=== PATIENT | female | born 1960 | race Caucasian/White ===

== ENCOUNTER 2021-04-13 21:52 | Emergency (ER) | payer OTHER ==
[~2021-04-13] VITALS: Ht 152.4 cm; Wt 43.0 kg
--- NOTE | ~2021-04-13 | EMS ---
[facility] [address] [place] [address] EMS Patient Care Report Name: CYNTHIA MORLEY Room #: DEP Vic#: [id number] Admission: 04/13/21 Attend Phys: Discharge: 04/14/21 Date of : 60 Report #: [id number] THIS REPORT FOR: //name// Report Transmitted: 04/16/2021 13:38 EMS Care Summary [place], [place]/[facility] Incident [id number] @ 04/13/2021 20:59 Incident Location [facility] Patient CYNTHIA MORLEY Female, 61 Years 1960 Patient Address [address] [place] [address] Patient History Behavioral/Psychiatric Disorder, Chief Complaint BEHAVIORAL/SI PT - HAS NO COMPLAINT Disposition Transported No Lights/[place] Dispatch Reason Psychiatric Problem/Abnormal Behavior/Suicide Attempt Transported To [facility] Narrative M39 was dispatched to listed address for a transfer from [facility] to [facility]. Pt being transferred today for behavioral issues. Suicidal ideations and confusion. Pt has no complaints and is very pleasant and in good spirits. Pt was loaded onto cot and into ambulance. During transport pt rested comfortably and secured to cot with no problems. Pt care and report given to receiving hospital with no problems. Initial Vitals [facility] [address] [place] [address] EMS Patient Care Report Name: CYNTHIA MORLEY Room #: DEP [facility] [id number] Admission: 04/13/21 Attend Phys: Discharge: 04/14/21 Date of : 60 Report #: [id number] @21:28P: 96,R: 18,BP: 167/62,Pain: 0/10,GCS: 14,SpO2: 100,Revised Trauma: 12, @21:47P: 86,R: 16,BP: 151/81,Pain: 0/10,GCS: 14,SpO2: 99,Revised Trauma: 12, Assessments @21:20MENTAL:Confused,Place Oriented,Event Oriented,Time Oriented,Person Oriented,SKIN:HEENT:Head/Face: No Abnormalities,Neck/Airway: No Abnormalities,LUNG SOUNDS:General: No Abnormalities,ABDOMEN:General: No Abnormalities,PELVIS//GI:No Abnormalities,EXTREMITIES:Left Arm: No Abnormalities,Right Arm: No Abnormalities,Left Leg: No Abnormalities,Right Leg: No Abnormalities,PULSE:Radial: 2+ Normal,NEURO: Impression Behavioral/psychiatric episode Procedures @21:20 ALS Assessment Response: UnchangedSucceeded Timeline 15:48,Call Received 15:48,Dispatch Notified 20:59,Dispatched 20:59,En Route 21:17,On Scene 21:18,At Patient 21:20,ALS Assessment,Response: UnchangedSucceeded, 21:27,Depart Scene 21:28,BP: 167/62 M,PULSE: 96,RR: 18 R,SPO2: 100 Ox,ETCO2: ,BG: ,PAIN: 0,GCS: 14, 21:47,BP: 151/81 M,PULSE: 86,RR: 16 R,SPO2: 99 Ox,ETCO2: ,BG: ,PAIN: 0,GCS: 14, 21:57,At Destination 22:01,Call Closed Disclaimer v1.1 Copyright 2021 [employer] This EMS Care Summary contains data elements from the applicable legal record (which may be displayed differently). It is designed to provide pertinent information for the following purposes: continuity of care, clinical quality, and state data reporting. The complete legal record is available to ED staff and administrators of the receiving hospital in [employer]'s Patient Tracker. All data is provided "as is."
[2021-04-13 22:23] VITALS: BP 154/95
[2021-04-14] MEDS ORDERED: LISINOPRIL20 MG PO (12:50)
== END 2021-04-14 10:00 ==
LOC: ER 21:52
PROVIDERS: Student in an Organized Health Care Education/Training Program
DX: F03.91 Unspecified dementia, unspecified severity, with behavioral disturbance (principal); Z20.822 Contact with and (suspected) exposure to COVID-19

== ENCOUNTER 2021-04-14 03:47 | Inpatient (IN) | payer OTHER ==
[~2021-04-14] VITALS: Ht 154.9 cm; Wt 36.3 kg
[2021-04-14 10:33] VITALS: BP 128/107
[2021-04-14 11:59] VITALS: BP 139/94
--- NOTE | 2021-04-14 12:41 | NUR ---
61 yo female admitted via ER with unspecified psychosis. Alert and orientated to name only. Slightly agitated but calms down when left alone. At times uncooperative with cares. States she wants to go home. Reportedly verbally abusive toward stating she wants to kill him. Denies SI/HI. Per no previous mental health hx. Breath sounds clear. Reg HR, low 100s auscultated. Color pink with brisk capillary refill and palpable peripheral pulses. No edema noted. Incontinent of large amt yellow urine. Active bowel sounds over soft, flat abdomen. Per report has recent 40# wt loss. Ambulates with regular, steady gait. Consents obtained via phone from Liam CAMACHO.
[2021-04-14] MEDS ORDERED: LISINOPRIL20 MG PO (12:50)
[2021-04-14 13:01] LABS: CHOLESTEROL 219 mg/dL (<200); HDL CHOLESTEROL 105 mg/dL (>40); LDL CHOLESTEROL 103 mg/dL (<100); TC:HDL 2.1 Ratio (Not establshd); TRIGLYCERIDE 59 mg/dL (<150); VLDL 12 mg/dL (<40)
--- NOTE | 2021-04-15 04:09 | NUR ---
Assumed pt's care this pm shift. Oriented to self. Confused. Difficult to redirect. Pt wandering the hallway and entering into other people's rooms. Pt refused PO med zyprexa, therefore IM zyprexa given. Pt got into verbal disagreement with a peer, because the peer was raising his voice to get attention. Pt now in her room, sleeping. Nursing to continue to monitor.
[2021-04-15 05:36] LABS: GLYCOHEMOGLOBIN (HGB A1C) 5.2 % (4.8-5.6)
[2021-04-15 08:59] VITALS: BP 111/75
--- NOTE | 2021-04-15 10:56 | NUR ---
RESTLESS IN DAYROOM THIS AM. ANXIOUS DISTRAUGHT FACIAL EXPRESSION-ASKING REPEATDLY FOR BEBE WHO IS REPORTED TO BE HER DOG. ORIENTED TO NAME ONLY-REMINDED SEVERAL TIMES SHE IS IN THE HOSPITAL BUT APPEARS UNABLE TO RETAIN INFO PROVIDED WITHIN 1-2 MINUTES WILL ASK AGAIN WHERE SHE IS AT. TEARFUL-STATING SHE IS "LOST" UNABLE TO BE REASSURED DESPITE MULTIPLE ATTEMPTS FROM NURSING STAFF. GAIT UNSTEADY WALKS INSISENTLY UNTIL BECOMES OVERLY FATIGUED-UNABLE TO BE REDIRECTED.
--- NOTE | 2021-04-15 11:15 | NUR ---
04-15-2021-1030--Call to signiicant other of patient, Liam Leal--( ) to get further information (SS # and income source). Not in message left to return my call
[2021-04-15 19:30] VITALS: BP 102/70
[2021-04-15 19:40] VITALS: BP 92/71
[2021-04-15 20:23] VITALS: BP 92/71
--- NOTE | 2021-04-15 22:52 | H ---
[facility] [place] [address] HISTORY AND PHYSICAL Name: CYNTHIA MORLEY Room #: 525A-A ADM IN M.R.#: [id number] Admission: 04/14/21 Attend Phys: Pranay Fregoso DO Discharge: Date of : 60 Report #: [id number] THIS REPORT FOR: cc: FAM - No family physician/PCP FAM - No family physician/PCP Pranay Fregoso DO ~ DATE OF SERVICE: 04/14/2021 INPATIENT PSYCHIATRIC EVALUATION [facility]13[facility]21. SOURCES OF INFORMATION: [facility] from [facility], telephone conversation with her DPOA, Liam Leal, [phone]. CHIEF COMPLAINT: "I am in my home." HISTORY OF PRESENT ILLNESS: This is a 61-year-old female who co-habitates with her boyfriend of 15 years, Liam Leal. The patient presented to the [facility] ED on 04/12 with complaints of aggression. She was brought by the [place] [employer]. She was also confused. The patient has according to the [facility] notes had a progressive dementia for 8-10 years. From discussion with the boyfriend, it was clear in the last 3 years she has been demented. The reports that she was supposed to have a spinal tap at [facility] on 04/12/2021, that appears not to be true. That was recommended due to neurological consultation. Moving on, The patient had become combative, so her boyfriend called an ambulance. She had escalation over the last couple of months, especially in the last 2 weeks. Her boyfriend has quit his job to be her full-time caregiver. He states he is there 98% of the time. She is having behaviors such as up at night pacing. At times, it seems she may be talking with herself or in the mirror. There was not a CIT report initially, but there are affidavits done, I will review. The patient at [facility] was mildly disheveled in a hospital gown, [facility]. She was oriented to self only. She had word salad and nonsensical speech. Thought process was disorganized. Thought content was delusional. The patient's mood was dysphoric. She was interacting with internal stimuli. She was tearful, upset about her dog that she has imagined was next to her. She was assessed by a HP at [facility]. Her medical history included a treatment of COPD, memory loss, mixed hyperlipidemia, pulmonary hypertension. The patient reported that she has [address] [address] HISTORY AND PHYSICAL Name: MORLEYCYNTHIA VILLARREALNE Room #: 525A-A ADM IN .R.#: [id number] Admission: 04/14/21 Attend Phys: Pranay Fregoso DO Discharge: Date of : 60 Report #: [id number] many things to do at home. The patient denies any suicidal ideation or homicidal ideation. The patient's partner reports about 3 years ago, she lost her ADLs skills. She is frequently incontinent of bowel and bladder. LABORATORY DATA: From [facility], sodium 140, potassium 4.0, chloride 103, bicarb 27, anion gap 10, glucose 81, BUN 16, creatinine 0.77, GFR ujc-Pgrnmwy-Fsllexai 83, calcium 9.0, calculated osmolality 290. White blood cell count 7.40, H and H 15.2 and 45.9, platelet count 340. Urinalysis, looks like it was done but I cannot see the results. Acetaminophen negative. Serum alcohol was 11. Salicylate less than 0.3. UDS was positive for cannabinoids. Additional documentation from the emergency medicine physician, Dr. Covarrubias at [facility], the patient denied fevers or chills or chest pain or shortness of breath or cough. She reports that she has many things to do at home. Trying to see if we had a formal review of systems. The patient was too disorganized for me to do one with her. Additional information from conversation with Rylee and our child protective services social worker, her primary care physician at [facility] was Dr. Wharton. The patient had an MRI in late 2019. The patient had a couple neurologic consults, told she was losing white and rosales matter. I suspect with a spinal tap, they will be looking for prion disease or something of that nature. She had a UTI in the summer, which caused her to be quite unreasonable. It sounds like she had a brief medical hospitalization for that. We discussed the patient will need to become Medicaid pending. The DPOA, Liam, gave his own detail of problems he has getting IRS 2056 form done. He finally got it filled at a few months ago but has not heard back. He states the patient has not worked in 11 years. There has been involvement with [facility] and the CIT officer, Carl garcia. FAMILY HISTORY: In terms of the family history, there was a cousin on the father's side that was autistic, looks like her grandmother had dementia. She has 3 siblings total, 2 sisters and 1 brother. SOCIAL HISTORY: She was born in [place], [place], raised in [place], [place]. High school graduate. times twice. She did not have an kids. She has not smoked in 15-20 years. Looks like remote history of alcohol abuse and stated she quit smoking 20-30 years ago. She is occasionally done THC in the last 5 years, so UDS was positive for that. The DPOA recommended liquid pills, I was considering liquid Haldol, but she is presenting fairly akathisic. She had her sister as her paid caregiver until August of this year and the sister [facility] [address] [place] [address] HISTORY AND PHYSICAL Name: CYNTHIA MORLEY Room #: 525A-A ADM IN [facility].#: [id number] Admission: 04/14/21 Attend Phys: Pranay Fregoso, DO Discharge: Date of : 60 Report #: [id number] was not able to keep doing it. We gave him her privacy code number, that is Liam. Additional information, vital signs today, temperature 36.3, pulse 98, BP 139/94. CURRENT MEDICATIONS: Here at [facility], she was strictly on lisinopril 20 mg daily at home, I only increased it to lisinopril 40 mg daily. Started on olanzapine 2.5 mg twice a day with IM backup if she refuses. I gave her a one-time dose of lorazepam for the apparent acute akathisia. She is on Zofran, BenGay, magnesium hydroxide, Cepacol, aluminum hydroxide, magnesium hydroxide and Tylenol to round out her PRNs. Laboratory work done here at [facility] so far strictly, triglycerides 59, total cholesterol 219, LDL 103, HDL 105. COVID-19 serology was not detected. REVIEW OF SYSTEMS: Also Dr. Scherer was able to do review of systems, they were as follows: CONSTITUTIONAL: Denies fever, chills, diaphoresis, malaise. HEENT: Denies congestion, headache, dizziness, difficulty swallowing. RESPIRATORY: Denies cough, dyspnea on exertion, orthopnea, shortness of breath. CARDIOVASCULAR: Denies chest pain, edema, palpitations. GASTROINTESTINAL: Denies abdominal pain, constipation, diarrhea, nausea. MUSCULOSKELETAL: Denies back pain, muscle pain, joint pain, joint swelling. SKIN: Denies rash, bruising, abrasion. NEUROPSYCHIATRIC: Denies numbness, tingling, focal weakness, dizziness. ENDOCRINE: Denies flushing, intolerance to cold, intolerance to heat, increased hunger. HEMATOLOGY/ONCOLOGY: Denies easy bleeding, easy bruising, anemia, blood clots. PSYCHIATRIC: She is denying concerns. PHYSICAL EXAMINATION: GENERAL: She is thin, frail, malnourished appearing female, appearing stated age. MENTAL STATUS EXAMINATION: Well-developed, frail, ill-appearing female. Attention quite limited. Concentration quite limited. Speech normal in rate. Thought process linear for very basic things and becoming disorganized, tangential. She denied suicidal or homicidal ideation. Denied auditory, visual or tactile hallucinations. Memory not formally tested, but known to be grossly impaired. Insight impaired. Judgment impaired. Fund of knowledge well below average. On special note, the patient is incapacitated due to her grave degree of cognitive impairment. Therefore, her durable power of energy attorney for healthcare and durable power of energy attorney for general financial matters is now enacted. I [facility] [address] [place] [address] HISTORY AND PHYSICAL Name: CYNTHIA MORLEY Room #: 525A-A [facility] IN M.R.#: [id number] Admission: 04/14/21 Attend Phys: Pranay JayMaria Esther Fregoso, DO Discharge: Date of : 60 Report #: [id number] made a point of telling this to Liam Mel, her significant other and DPOA. FORMULATION: A 61-year-old female transferred from [facility] for aggressive behaviors, deteriorating cognition hallucinations. 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 The patient's medical needs will be done by Dr. Scherer. She has hypertension, low BMI of 15.6, so she has at least moderate protein calorie malnutrition. PLAN: Will be admission by DPOA in the Geriatric Psychiatry Unit. Evaluate, stabilize, obtain collateral. The patient has had a fair amount of workup done at [facility] in [place]. I will do records request. I did note as well she has a remote history of asthma with admission requiring intubation for respiratory failure about 10 years ago according to Mel. Hospitalist is consulted. Obtain records from [facility]. Regarding her current psychosis and impulsive behaviors, we will start her on olanzapine 2.5 mg twice a day with IM backup. We will give her a one-time 0.5 mg lorazepam dose now. We will see how she responds later today. Given the patient's Medicaid pending, is a top priority and I did discuss that with the DPOA. STRENGTHS: She has a DPOA. WEAKNESSES: She is uninsured, needs a long-term care placement. She is currently full code, but I am going to move her to NO CODE STATUS as her gravely impaired cognition with the hindrance to any successful code blue resuscitation. Time spent on this case is at least 60 minutes, greater than 50% of time was spent on review of records and coordination of care. <ELECTRONICALLY SIGNED> By: Pranay Fregoso, 04/15/21 [id number] Pranay Fregsoo, /nt
--- NOTE | 2021-04-16 04:27 | NUR ---
PATIENT CARE WAS RESUMED AT 1900. SHE WAS SITTING IN THE DININIG AREA AT THE TABLE. SHE IS SLEEPY AND ABLE TO VERBALIZED SOME NEEDS. LUNGS ARE CLEAR. BS ACTIVE X 4 QUADS. SHE TOOK HER MEDS WHOLE AND A MODERATE ASSIST WITH TRANSFER. SHE IS CONTINET OF BOWEL AND BLADDER.FALL PRECATION IN PLACE YELLOW SOCKS AND TOP ON. DENIES SI/AVH/HI. BED IS LOW, LOCKED AND ALARMED
[2021-04-16 08:59] VITALS: BP 117/90
--- NOTE | 2021-04-16 10:41 | NUR ---
SITTIG IN DAYROOM MAJORITY OF SHIFT. SPEECH SOFT,DIFFICULT TO UNDERSTAND. ORIENTED TO NAME ONLY. CONVERSDATION FRAGMENTED-INCOHERENT. GIT UNSTEADY
--- NOTE | 2021-04-16 15:26 | NUR ---
04-16-2021--1400--Family meeting this dater with the significant other of patient, Mr. Leal ([phone]) and he requested I send a referral packet to [facility]. I called the [facility] and obtained their fax number. Admissions called me back wanting to know what her paying source was. I told them she is Medicaid pending. She stated they would get back with me.
[2021-04-16 19:40] VITALS: BP 108/69
[2021-04-16 20:34] VITALS: BP 108/69
--- NOTE | 2021-04-17 04:53 | NUR ---
PATIENT CARE WAS RESUMED AT 1900. SHE WAS SITTING IN THE DININIG AREA ON A RAE CHAIR IN A RIGHT LATERAL POSITION ON HER COMFORT. SHE DENIES ANY PAINS AND NEEDS ASSIST WITH TRANSFER. SHE TOOK HET MEDS WHOLE. DENIES SI/AVH/HI. LUNGS ARE CLEAR BS ACTIVE X4 QUADS. PATINET IS CONTINNET AT THIS TIME. YELLOW TOP AND SOCKS ON WITH BEDLOW, LOCKED AND ALARMED. Q12 MINUTES CHECKS ON GOING.
[2021-04-17 09:41] VITALS: BP 101/61
--- NOTE | 2021-04-17 11:33 | NUR ---
Alert and orientated to name only. Calm, cooperative and compliant. Sleepy at times. Denies SI/HI, no speech/behavior suggestive of SI/HI. Breath sounds clear. Reg HR auscultated. Color pink with brisk capillary refill and palpable peripheral pulses. Continent of yellow urine per toilet. Active bowel sounds over soft, flat abdomen. No documented BM since admission. Will give MOM when available. Sitting in recliner without s/o distress. Able to ambulate with regular, steady gait.
[2021-04-17 19:40] VITALS: BP 118/85
[2021-04-17 21:02] VITALS: BP 83/50
[2021-04-17 21:03] VITALS: BP 116/104
--- NOTE | 2021-04-18 04:07 | NUR ---
PATIENT CARE WAS RESUMED AT 1900. SHE WAS SITTING IN THE DININIG ROOM ON A RAE-CHAIR. SHE IS CONFUSED.DENIES PAINS, SI/AVH/HI. SHE IS INCONTINET OF BLADDER. LUNGS ARE CLEAR BS ACTIVE X4 QUADS. SHE TOOK HER MEDS WHOLE AND IS ABLE TO VERBALISE SOME NEEDS. SHE IS ASSISTED WITH [facility]. BED IS LOCKED , LOW , ALARMED AND PATIENT HAS YELLOW TOP AND SOCKS ON. CONTINUE CARE
[2021-04-18 09:05] VITALS: BP 147/79
--- NOTE | 2021-04-18 10:37 | NUR ---
COVID TEST COMPLETED, SENT TO LAB.
--- NOTE | 2021-04-18 10:38 | NUR ---
04-18-2021--103--Call to Mukul (machine operators). He was not available. When I talked to him last he wanted to know what huyanujant's paying source was. I explained she was Medicaid Pending. (Mr. Leal patient's DPOA stated he had taked to [facility] and filled out the needed paperwork.) I left a message for Mukul to determine if he would accept her. Waiting for call back.
--- NOTE | 2021-04-18 13:22 | NUR ---
PATIENT WAS UP, AND OUT ON THE UNIT, SITTING IN GERICHAIR WHEN CARE ASSUMED. MORNING MEDICATION GIVEN CRUSHED IN PUDDING, WELL TOLERATED. PATIENT IS ALERT TO SELF, FORGETFUL, AND PLEASANTLY CONFUSED. PATIENT REQUIRES ASSIST OF STAFF TO FEED, AND COMPLETE ADL. INCONTINENT CARE PROVIDED BY STAFF. PATIENT IS NOT ABLE TO APPRORIATELY RESPOND TO ASSESSMENT QUESTIONS DUE TO COGNITVE IMPAIRMENT. NO SUICIDAL GESTURE NOTED. INTERMITTENT RESTLESSNESS NOTED, NO AGITATION OR AGGRESSIVE BEHAVIOR NOTED AT THIS TIME, WILL CONTINUE TO REDIRECT, AND MONITOR FOR SAFETY.
--- NOTE | 2021-04-18 14:00 | NUR ---
04-18-2021--1400--Calls made to junior data analyst, Mukul, several times today and left messages. (10:30 AM; 11:30 AM; and 1:45 PM). He wanted to know what kind of aggression she was havkng eyal yaght to us. I called her significant other and he stated the first time she had a UTI. The second time when they brought her here she just wasnn't doing what he wanted him to do. He stated she didn't understand why he was asking her to do things (Ilike get dressed). Mr. Rushing told me to give the admissions person his number and he would talk to him directly. I attempted to call Mukul back but he didn't answer. I left the above information and Mr. Rushing's phone number. I also called Cat (with the [facility]). She wasn't in but I told hber about patient and told her I was faxing the referral to her. I will attempt to call her again tomorrow.
[2021-04-18 19:14] VITALS: BP 110/60
[2021-04-18 19:45] VITALS: BP 110/60
--- NOTE | 2021-04-19 01:26 | NUR ---
PATIENT CARE WAS RESUMED AT 1900. SHE WAS SITTING IN THE DINING AREA AT THE TABLE.SHE IS CONFUSED. TOOK HER MEDS WHOLE.LUNGS ARE CLEAR, SHE DENIES PAINS. BS ACTIVE X4 QUADS.SHE AMBULATES WITH ASSIST X1 . YELLOW TOP AND NON SKID SOCKS ON. Q12 MINUTES CHECKS ON GOING . CONTINUE CARE
[2021-04-19 09:23] VITALS: BP 118/68
[2021-04-19 11:45] VITALS: BP 118/68
[2021-04-19 14:12] LABS: URINE BILIRUBIN NEGATIVE (Negative); URINE BLOOD NEGATIVE (Negative); URINE CLARITY CLEAR; URINE COLOR YELLOW; URINE GLUCOSE-RANDOM* NEGATIVE (Negative); URINE KETONES NEGATIVE (Negative); URINE LEUKOCYTES-REFLEX TRACE (Negative); URINE NITRITE-REFLEX NEGATIVE (Negative); URINE PROTEIN (DIPSTICK) NEGATIVE (Negative); URINE UROBILINOGEN 0.2 E.U./dl (0.2-1.0)
--- NOTE | 2021-04-19 16:13 | NUR ---
PATIENT CARE RESUMMED; PATIENT RESTING IN GERICHAIR IN THE DAYROOM; PATIENT PRESENTS ALERT*1 (SELF); CONFUSED, ALTHOUGH CALM AND COOPERATIVE THROUGHOUT THE DAY; PATIENT DENIES SI/HI/AVH; AUT[employer]S DELIVERY DRIVER VISUALIZED PRESENT DISORGANIZED DELUSIONS; DENIED HAVING ANY CURRENT PAIN; VSS ON ROOMAIR; PATIENT NEEDS ASSISSTANCE WITH MEDICATION ADMINISTRATION DUE TO NOTED TREMORS IN BUE, CAUSING PATIENT TO SPILL MEDICATIONS AND FLUIDS; YES/NO QUESTIONS ARE BEST FOR PATIENT RESPONCES; LUNG SOUNDS CLEAT BILATERALLY, NONLABORED; ABDOMEN SOFT, NONDISTENDED WITH BSP*4; FALL PRECAUTIONS ARE IN PLACE; UA COLLECTED TODAY DUE TO FOUL SMELLING URINE; WILL CONTINUE TO MONITIOR PATIENT;
[2021-04-19 19:20] VITALS: BP 91/62
[2021-04-19 19:50] VITALS: BP 91/62
--- NOTE | 2021-04-20 04:43 | NUR ---
PATIENT ARE WAS RESUMED AT 1900, SHE WAS SITTING AT THE TABLE IN HE DINING AREA. SHE IS AWAKE AND ABLE TO COMMUNICATE SOME NEEDS. LUNGS ARE CLEAR BS ACTIVE X4 QUADS. SHE DENIES PAINS/SI/AVH/HI. SHE TOOK HER MEDS CRUSHED IN A PUDDING. SHE IS INCONTINENT OF BLADDER. YELLOW TOP AND SOCKS ON. BED IS LOW, LOCKED AND ALARMED.Q12 MINUTES CHECKED ONGOING. CONTINUE CARE
--- NOTE | 2021-04-20 08:22 | NUR ---
04-20-2021--814--Call to Cat to check on possiboe admission to one of her facilities. No answer. Message left to call me back. [facility]. Not in. Message left with my number and request to call me back abojt admission.
[2021-04-20 09:11] VITALS: BP 104/64
--- NOTE | 2021-04-20 11:28 | NUR ---
Alert and orientated to name only. Denies SI/HI, no speech/behavior suggestive of SI/HI. Calm, cooperative and compliant. Took meds whole. Breath sounds clear. Reg HR auscultated. Color pink with brisk capillary refill and palpable peripheral pulses. Active bowel sounds over soft, flat abdomen. Continent of yellow urine per toilet. Able to ambulate with steady gait. Currently sitting in recliner without s/o distress.
--- NOTE | 2021-04-20 11:52 | NUR ---
04-20-2021--0994--Emailed Cat to determine oif any of her facilities had accepted or denied patient. Waiting for a return phone call or e-mail. Also attempted to call [facility]. Three voice mails were left for him to return my phone call. No response so far.
[2021-04-20 19:30] VITALS: BP 104/64
--- NOTE | 2021-04-21 01:37 | NUR ---
PATIENT CARE WAS RESUMED AT 1900. SHE WAS T THE DININIG AREA SITTING ON RECLINER. SHE TOOK HER MEDS WHOLE AND ABLE TO VERBALIZE SOME NEEDS. LUNGS ARE CLEAR BS ACTIVE X4 QUAD.SHE TOOK HER MEDS WHOLE AND TALKED TO ANOTHER PATIENT SITTING THERE. SHE IS A MAX ASIST WITH CARE. SHE DENIES PAINS/SI/AVH/HI
[2021-04-21 07:31] VITALS: BP 127/75
--- NOTE | 2021-04-21 09:06 | NUR ---
Alert and orientated to name only. Confused speech with some coherent statements. Ambulates with slightly unsteady gait with assistance. Breath sounds clear. Reg HR auscultated. Color pink with brisk capillary refill and palpable peripheral pulses. Continent of yellow urine per toilet. Active bowel sounds over soft, flat abdomen. Currently sitting in recliner in day room with peers. No s/o distress.
[2021-04-21 13:42] LABS: ABSOLUTE NEUTROPHILS 4.5 thou/uL (1.4-8.2); BASOPHILS 0.3 % (0.0-2.0); EOSINOPHILS 2.5 % (0.0-3.0); HEMOGLOBIN 14.5 gm/dL (12.0-15.0); LYMPHOCYTES 11.1 % (24.0-44.0); MCH 30.3 pg (26.0-34.0); MCV 91.8 fL (80.0-100.0); MONOCYTES 8.4 % (1.0-8.0); PLATELET COUNT 244 thou/uL (150-400); POLYS 77.7 % (36.0-66.0); RBC 4.79 mil/uL (4.20-5.00); RDW 13.3 % (10.5-14.5); WBC 5.7 thou/uL (4.0-11.0)
[2021-04-21 14:01] LABS: ALBUMIN 3.9 g/dL (3.4-5.0); CALCIUM 9.4 mg/dL (8.5-10.1); CREATININE 0.9 mg/dL (0.6-1.0); POTASSIUM 4.7 mmol/L (3.5-5.1); TOTAL BILIRUBIN 0.3 mg/dL (0.2-1.0); TOTAL PROTEIN 7.2 g/dL (6.4-8.2)
[2021-04-21 16:26] VITALS: BP 125/71
[2021-04-21 18:52] LABS: URINE BILIRUBIN NEGATIVE (Negative); URINE BLOOD TRACE (Negative); URINE CLARITY CLEAR; URINE COLOR YELLOW; URINE GLUCOSE-RANDOM* NEGATIVE (Negative); URINE KETONES TRACE (Negative); URINE LEUKOCYTES-REFLEX NEGATIVE (Negative); URINE NITRITE-REFLEX NEGATIVE (Negative); URINE PROTEIN (DIPSTICK) NEGATIVE (Negative); URINE SPECIFIC GRAVITY 1.025 (1.005-1.035); URINE UROBILINOGEN 0.2 E.U./dl (0.2-1.0)
[2021-04-21 19:50] VITALS: BP 125/74
[2021-04-22 00:05] VITALS: BP 118/64
--- NOTE | 2021-04-22 01:10 | NUR ---
04-21-20 CARE TRANSFERRED 1899. LATER PT DROWSY, CALM AND COOPERTIVE. PT AAOX1, VSS, RR EVEN AND NONLABORED ON RA, PT LUNGS CLEAR, HT RR, ABD SOFT/ACTIVE/ NONTENDER. PT DENIES PAIN AND SI/HI. PT VERBAL COMMUNICATION GARBLED WITH WORD SALAD. HCP Sherif ESCAMILLA MD CONSULTED R/T COVID POSITIVE LAB, PT TO TRANSFERR TO 3W.
--- NOTE | 2021-04-23 07:38 | EKG ---
[place] [address] [facility] [place] [address] ELECTROCARDIOGRAM REPORT Name: CYNTHIA MORLEY Room #: 525A-A [facility] IN .R.#: [id number] Admission: 04/14/21 Attend Phys: Pranay Fregoso DO Discharge: 04/22/21 Date of : 60 Report #: [id number] 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
== END 2021-04-22 01:09 | disposition short-term general hospital (02) | DRG 884 ==
LOC: SBH 03:47
PROVIDERS: Internal Medicine; ADMIT Psychiatry & Neurology Psychiatry; ATTEND Psychiatry & Neurology Psychiatry
PROC: XW033E5 Introduction of Remdesivir Anti-infective into Peripheral Vein, Percutaneous Approach, New Technology Group 5 (ICD-10-PCS; principal; 2021-04-22)
DX: F03.91 Unspecified dementia, unspecified severity, with behavioral disturbance (principal); F01.50 Vascular dementia, unspecified severity, without behavioral disturbance, psychotic disturbance, mood disturbance, and anxiety; E43 Unspecified severe protein-calorie malnutrition; U07.1 COVID-19; Z68.1 Body mass index [BMI] 19.9 or less, adult; F29 Unspecified psychosis not due to a substance or known physiological condition; I10 Essential (primary) hypertension; J44.9 Chronic obstructive pulmonary disease, unspecified; J45.909 Unspecified asthma, uncomplicated; Z88.0 Allergy status to penicillin; Z28.21 Immunization not carried out because of patient refusal
CPT/HCPCS: 10880

== ENCOUNTER 2021-04-22 01:10 | Inpatient (IN) | payer OTHER ==
[~2021-04-22] VITALS: Wt 36.0 kg
[~2021-04-22 01:10] MED LIST: LISINOPRIL20 MG PO
[2021-04-22 02:05] VITALS: BP 85/58
--- NOTE | 2021-04-22 03:28 | NUR ---
ADMIT FROM H. PT PRESENTED ON SBH LETHARGIC, POOR INTAKE AND FEVER. TESTED POSITIVE FOR COVID. PT ADMITTED TO [facility] FOR AGITATION, CONFUSION, PACING, HISTORY OF DEMENTIA. LIVES WITH HER BOYFRIEND/DPOA, HE IS HER CONDENSER WINDER ESCROW REPRESENTATIVE. PT HAS HX OF HTN, ASTHMA, DEMENTIA, MARIJUANA USE, ETOH HISTORY, SMOKING HISTORY. PT WOULD NOT FOLLOW VERBAL INSTRUCTIONS, WOULD NOT OPEN EYES, WOULD NOT ANSWER ANY QUESTIONS. PT POSITIONING SELF IN POSITION IN BED, HOLDING ARMS IN TIGHTLY. 4 ATTEMPTS TO START IV, NOT SUCCESSFUL. PER REPORT PT IS ALERT TO SELF AND TALKS IN WORD SALAD. INCONTINENT, NEEDS MAX ASSIST WITH FEEDING, ADLS AND AMBULATION. BED ALARM ON.
[2021-04-22 04:26] LABS: HEMATOCRIT 42.9 % (37.0-47.0); MCH 30.5 pg (26.0-34.0); MCHC 32.5 g/dL (28.0-37.0); MCV 93.8 fL (80.0-100.0); RBC 4.58 mil/uL (4.20-5.00); RDW 13.4 % (10.5-14.5); WBC 3.4 thou/uL (4.0-11.0)
[2021-04-22 04:50] LABS: CALCIUM 9.5 mg/dL (8.5-10.1); CREATININE 0.9 mg/dL (0.6-1.0); POTASSIUM 4.1 mmol/L (3.5-5.1)
[2021-04-22 04:54] LABS: ALBUMIN 3.7 g/dL (3.4-5.0); TOTAL BILIRUBIN 0.4 mg/dL (0.2-1.0); TOTAL PROTEIN 6.8 g/dL (6.4-8.2)
--- NOTE | 2021-04-22 06:25 | NUR ---
WILL HAVE DAYSHIFT CONTINUE IV START ATTEMPTS OR CONTACT IV TEAM.
[2021-04-22 08:07] VITALS: BP 83/48
[2021-04-22 11:20] VITALS: BP 100/65
[2021-04-22 15:48] VITALS: BP 123/66
--- NOTE | 2021-04-22 19:46 | NUR ---
RN ASSUMED PT'S CARE AT 0700-1900PM, PT WAS SLEEPING AT MORNING, PT IS CONFUSED, PT IS AGITAION AT TIME, PT IS ON ROOM AIR, PT'S VS AND O2SAT ARE STABLE, PT IS CONTNUING IV ABX AND TREAT COVID MEDICATIONS, PT HAS BRAMBILA CATHETER AT 1730PM , BECAUSE PT HAS URINARY RETENTION, PT REFUSED TO EAT ANS DRINK AT DINNER TIME.
[2021-04-22 19:48] LABS: URINE BILIRUBIN NEGATIVE (Negative); URINE BLOOD NEGATIVE (Negative); URINE CLARITY CLEAR; URINE COLOR YELLOW; URINE GLUCOSE-RANDOM* NEGATIVE (Negative); URINE KETONES TRACE (Negative); URINE LEUKOCYTES-REFLEX NEGATIVE (Negative); URINE NITRITE-REFLEX NEGATIVE (Negative); URINE PROTEIN (DIPSTICK) NEGATIVE (Negative); URINE SPECIFIC GRAVITY >= 1.030 (1.005-1.035); URINE UROBILINOGEN 0.2 E.U./dl (0.2-1.0)
[2021-04-22 21:07] VITALS: BP 144/118
--- NOTE | 2021-04-22 22:40 | NUR ---
PT ALERT . CONFUSED. FOLLOWS SOME COMMANDS. VSS.AFEBRILE. BED DOWN CALL LIGHTIN REACH IV FLUIDS AND ABX INFUSING WITHOUT DIFFICULTY. NO S/S DISRESS.
[2021-04-23 00:30] VITALS: BP 1120/68
[2021-04-23 04:48] VITALS: BP 100/55
--- NOTE | 2021-04-23 05:29 | NUR ---
PT PROGRESSING SLOWLY TOWARDS D/C GOALS. PT IS CALMER TONIGHT. LESS AGITATED. DENIED PAIN. NO SOA NOTED ON RA. VSS . LOW GRADE TEMP THIS AM. IVF INFUSING L FERMIN WITHOUT DIFFICULTY.
[2021-04-23 06:55] LABS: ABSOLUTE NEUTROPHILS 1.6 thou/uL (1.4-8.2); BASOPHILS 0.5 % (0.0-2.0); EOSINOPHILS 0.4 % (0.0-3.0); HEMOGLOBIN 13.1 gm/dL (12.0-15.0); LYMPHOCYTES 35.6 % (24.0-44.0); MCH 30.3 pg (26.0-34.0); MCHC 32.7 g/dL (28.0-37.0); MCV 92.7 fL (80.0-100.0); PLATELET COUNT 167 thou/uL (150-400); POLYS 49.5 % (36.0-66.0); RBC 4.32 mil/uL (4.20-5.00); WBC 3.2 thou/uL (4.0-11.0)
[2021-04-23 07:13] LABS: ANION GAP 10 mmol/L (7-16); BUN 27 mg/dL (7-18); CALCIUM 8.8 mg/dL (8.5-10.1); CHLORIDE 107 mmol/L (98-107); CO2 23 mmol/L (21-32); DIRECT BILIRUBIN < 0.1 mg/dL (<0.1-0.2); GLUCOSE 86 mg/dL (74-106); MAGNESIUM 1.8 mg/dL (1.8-2.4); PHOSPHORUS 4.4 mg/dL (2.5-4.9); POTASSIUM 4.3 mmol/L (3.5-5.1); SGOT 30 U/L (15-37); SGPT 23 U/L (30-65); SODIUM 140 mmol/L (136-145); TOTAL BILIRUBIN 0.2 mg/dL (0.2-1.0)
[2021-04-23 07:25] LABS: FIBRINOGEN 323 mg/dL (201-437)
[2021-04-23 07:37] LABS: D-DIMER < 0.19 ug/mLFEU (0.19-0.50)
[2021-04-23 07:40] VITALS: BP 107/66
[2021-04-23 11:37] VITALS: BP 101/63
--- NOTE | 2021-04-23 13:42 | NUR ---
INITIAL ASSESSMENT: SW reviewed chart and spoke with nursing and attending physician. Pt was admitted to 3W from [facility] unit due to having positive COVID test. Pt placed in Enhanced Isolation. Pt is afebrile and on room air. Pt is on IV abx and Remdesivir. Pt does not currently have health insurance. [employer] is working with pt/family to assist with Medicaid application. Pt with hx of dementia. Per chart, pt's s/o, Liam, is her DPOA. [facility] SW team has been working on placement for pt. SELAM is following to assist as needed with discharge planning.
--- NOTE | 2021-04-23 15:30 | NUR ---
Nutrition: REC weights bi-weekly and order B12 supplementation due to deficiency.
[2021-04-23 15:40] VITALS: BP 116/74
[2021-04-23 19:22] VITALS: BP 113/73
--- NOTE | 2021-04-23 19:53 | NUR ---
RN ASSUMED PT'S CARE AT 0700-1900PM, PT ONLY KNOWS HER NAME , PT IS COMFUSED AND IMPULSIVE , PT CANNOT FOLLOW COMMANDS, PT NEEDS HELP ADL AND MEALS, BUT PT IS POOR EATING AND DRINKING, PT IS CONTINUING IV ABX AND TREAT COVID MEDICATIONS, PT IS HIGH FALL RISK , RN HAS REPORTED TO NEXT SHIFT TO KEEP EYE ON PT.
[2021-04-24 04:25] VITALS: BP 122/78
[2021-04-24 05:16] LABS: HEMATOCRIT 39.6 % (37.0-47.0); HEMOGLOBIN 13.5 gm/dL (12.0-15.0); MCH 30.7 pg (26.0-34.0); MCHC 34.2 g/dL (28.0-37.0); MCV 89.7 fL (80.0-100.0); PLATELET COUNT 170 thou/uL (150-400); RBC 4.42 mil/uL (4.20-5.00); RDW 12.7 % (10.5-14.5); WBC 2.5 thou/uL (4.0-11.0)
[2021-04-24 05:58] LABS: ALBUMIN 3.2 g/dL (3.4-5.0); ANION GAP 10 mmol/L (7-16); BUN 18 mg/dL (7-18); CALCIUM 8.8 mg/dL (8.5-10.1); CHLORIDE 106 mmol/L (98-107); CO2 24 mmol/L (21-32); CREATININE 0.7 mg/dL (0.6-1.0); DIRECT BILIRUBIN < 0.1 mg/dL (<0.1-0.2); GLUCOSE 77 mg/dL (74-106); PHOSPHORUS 4.2 mg/dL (2.5-4.9); POTASSIUM 4.1 mmol/L (3.5-5.1); SGOT 27 U/L (15-37); SGPT 26 U/L (30-65); SODIUM 140 mmol/L (136-145); TOTAL BILIRUBIN 0.2 mg/dL (0.2-1.0); TOTAL PROTEIN 6.2 g/dL (6.4-8.2)
--- NOTE | 2021-04-24 06:03 | NUR ---
Patient making slow progress towards outcome goals. Oxygenatio optimal on room air. Very confused, was able to give oral Zyprexa. Talking to self, figeting around in bed but has made no attempts to get OOB. Incontinent of bladder. Denies pain. Vital signs and rhythm stable. IVfluids infusing.
[2021-04-24 07:51] VITALS: BP 141/87
[2021-04-24 08:08] LABS: HIV ANTIBODY Non Reactive (Non Reactive)
[2021-04-24 11:13] LABS: ABSOLUTE NEUTROPHILS 1.3 thou/uL (1.4-8.2); ATYPICAL LYMPHS 7 %; LARGE PLATELETS OCCASIONAL
--- NOTE | 2021-04-24 12:53 | NUR ---
SELAM contacted the [facility] concerning a referral sent. [facility] currently has no beds open. They did put the Pt on a wait list. SELAM also spoke with [facility] concerning referral to [facility]. The only facility accepting medicaid pending is [facility] at this time. Cat was going to call SELAM back concerning bed openings.
--- NOTE | 2021-04-24 13:57 | NUR ---
SELAM sent referrals to the following [place] [facility] SW team will continue to follow
[2021-04-24 15:49] VITALS: BP 122/95
--- NOTE | 2021-04-24 17:05 | NUR ---
RN ASSUMED PT'S CARE AT 0700AM, PT KNOWS HER NAME, PT IS CONFUSED, AND PT CANNOT FOLLOW COMMANDS, PT IS ON ROOM AIR, PT'S VS AND O2SAT ARE STABLE, PT DOES NOT HAVE SOB AT DAY SHIFT, PT IS CONTINUING IV ABX AND TREAT COVID MEDICATIONS, PT TAKES ALL PO MEDICATIONS TODAY , PT HAS PO AND IM OLANZAPINE FOR PT'S IMPULSIVE , PT 'S RESTLESS HAS IMPROVED, PT IS HIGH FALL RISK, PT 'S BED ALARM IS ON, PT NEEDS HELP ADL AND MEAL TIME.
[2021-04-24 19:45] VITALS: BP 128/77
--- NOTE | 2021-04-24 22:01 | HC ---
[facility] [place] [address] CONSULTATION Name: CYNTHIA MORLEY Room #: 364-P ADM IN M.R.#: [id number] Admission: 04/22/21 Attend Phys: Bernadette Benavides MD Discharge: Date of : 60 Report #: [id number] THIS REPORT FOR: cc: FAM - No family physician/PCP FAM - No family physician/PCP Francisco Javier Elizalde MD ~ DATE OF SERVICE: 04/22/2021 INFECTIOUS DISEASE CONSULTATION REASON FOR CONSULTATION: I was asked to evaluate concerning COVID-19 infection. HISTORY OF PRESENT ILLNESS: The patient is a 61-year-old with a neurocognitive disorder, who was hospitalized at the [facility] Unit from the Emergency Room on 04/13/2021. She has been COVID tested prior to her admission and subsequently on 04/16 and 04/18. Yesterday, she had fever up to 101 degrees and was retested turning positive for COVID-19 by nasopharyngeal swab PCR. She has underlying psychosis and could not give me any history. She was with no report of headache. There has been no cough or sputum production. No nausea, vomiting or diarrhea. No dysuria. She has had no rashes. She is now on antipsychotic medication as outlined by Dr. Fregoso. REVIEW OF SYSTEMS: A 14-point review was negative other than what has been described above. ALLERGIES: PENICILLIN. MEDICATIONS: As noted on her MAR, now including cefepime, haloperidol, Levaquin, lisinopril, Pepcid, olanzapine, enoxaparin, albuterol. PAST MEDICAL HISTORY: Hypertension, asthma, dementia. FAMILY HISTORY: Positive for dementia. SOCIAL HISTORY: Past smoker, does use marijuana. No significant alcohol intake. PHYSICAL EXAMINATION: GENERAL: She was afebrile and hemodynamically stable. She was paranoid. She would not allow extensive examination. SKIN: Without rash. HEENT: Eyes without scleral icterus. Mouth without mucositis. NECK: Supple. LUNGS: Clear anteriorly. HEART: Regular, without murmur. ABDOMEN: Soft and nontender. No peripheral edema. [facility] [address] [place] [address] CONSULTATION Name: CYNTHIA MORLEY Room #: 364-P [facility] IN ..#: [id number] Admission: 04/22/21 Attend Phys: Bernadette Benavides MD Discharge: Date of : 60 Report #: [id number] MICROBIOLOGY: Reviewed. IMAGING: Chest x-ray reviewed showing left lower lobe atelectasis. CT scan of the head reviewed. IMPRESSION: 1. A 61-year-old with neurocognitive disorder, psychosis, presents now with low-grade fever and COVID-19 positive nasopharyngeal swab. She does have left lower lobe atelectasis. No diffuse interstitial infiltrate evident on x-ray. She has no hypoxia. 2. Hypertension, stable. 3. Underlying chronic obstructive pulmonary disease. 4. Asthma. RECOMMENDATION: We will continue with remdesivir as the patient is at risk for further complications from COVID-19. She has no hypoxia and we will hold off on corticosteroids at this point. So far, no other evidence of end organ infection identified. As an inpatient, she does not qualify for monoclonal antibody or Paxlovid. We will also check serial laboratory studies and will discuss with laboratory regarding her PCR analysis. She will continue empiric antibiotic coverage. We will obtain serial chest x-ray. Monitor for cardiopulmonary issues on the COVID isolation unit. <ELECTRONICALLY SIGNED> By: Francisco Javier Elizalde MD 04/24/212200 19 37 Francisco Javier Elizalde MD /nt
[2021-04-25 03:19] VITALS: BP 139/75
--- NOTE | 2021-04-25 03:51 | NUR ---
ASSUMED PT CARE AT 1900. PT IS EXTREMELY CONFUSED AND AGITATED. PT REFUSED PO MEDS. ADMINISTERED IM ZYPREXA AND NOTED LESS AGITATION. IV ABX ADMINISTERED. VSS AFEBRILE. PATTY TO EDWIN. CONTINUE WITH PLAN OF CARE.
[2021-04-25 05:09] LABS: ALBUMIN 3.4 g/dL (3.4-5.0); ANION GAP 15 mmol/L (7-16); BUN 17 mg/dL (7-18); CALCIUM 8.5 mg/dL (8.5-10.1); CHLORIDE 106 mmol/L (98-107); CO2 19 mmol/L (21-32); CREATININE 0.7 mg/dL (0.6-1.0); DIRECT BILIRUBIN < 0.1 mg/dL (<0.1-0.2); GLUCOSE 91 mg/dL (74-106); POTASSIUM 4.1 mmol/L (3.5-5.1); SGOT 30 U/L (15-37); SGPT 37 U/L (30-65); SODIUM 140 mmol/L (136-145); TOTAL BILIRUBIN 0.2 mg/dL (0.2-1.0); TOTAL PROTEIN 5.9 g/dL (6.4-8.2)
[2021-04-25 08:35] VITALS: BP 154/109
--- NOTE | 2021-04-25 13:34 | NUR ---
SELAM recieved an email from Cat at [facility] in [place] has accepted the Pt. The facility is requiring the Pt to be isolated for 10 days due to testing positive for COVID on 04/21. Cat requested the [id number] code, Pt's social security number, updated clinical notes and DPOA. SELAM was able to fax the requested information. SELAM called the Pt's DPOA, Liam Leal [phone], in an effort to get the Pt's SSN. SELAM left a message requesting a call back. SELAM eDy also contacted the DPOA for rhis information. SELAM team will continue to follow
[2021-04-25 15:59] VITALS: BP 137/87
--- NOTE | 2021-04-25 18:36 | NUR ---
RN ASSUMED PT'S CARE AT 0700AM, PT IS CONFUSED AND IMPULSIVE, PT CANNOT FOLLOW COMMANDS, RN HAS REPORTED TO DRS ABOUT PT REFUSED EATING AND REFUSED PO MEDICATIONS, PT IS MORE IMPULSIVE TODAY, HAS ADIJUESTED MEDICATIONS FOR PT'S AGITATION , PT'S BED ALARM IS ON, PT IS HIGH FALL RISK, WE KEEP EYE ON THE , PT IS CONTINUING IV ABX AND IV TREAT COVID MEDICATIONS. PT DOES NOT HAVE SOB AT DAY SHIFT.
[2021-04-25 20:56] VITALS: BP 147/96
[2021-04-26 03:20] VITALS: BP 112/63
--- NOTE | 2021-04-26 03:34 | NUR ---
ASSUMED PT CARE AT 1900. PT REFUSED ALL PO MEDS DESPITE REASSURANCE AND ENCOURAGEMENT. ADMINISTERED IM ZYPREXA AND NOTED LESS IRRITABILTY AND AGITATION. IV ABX ADMINISTERED. VSS AFEBRILE. PT IS PROGRESSING SLOWLY TOWARDS POC GOALS. WILL CONTINUE TO MONITOR.
[2021-04-26 04:05] LABS: ALBUMIN 3.2 g/dL (3.4-5.0); ANION GAP 11 mmol/L (7-16); BUN 17 mg/dL (7-18); CALCIUM 8.9 mg/dL (8.5-10.1); CHLORIDE 106 mmol/L (98-107); CO2 20 mmol/L (21-32); CREATININE 0.4 mg/dL (0.6-1.0); DIRECT BILIRUBIN < 0.1 mg/dL (<0.1-0.2); GLUCOSE 103 mg/dL (74-106); POTASSIUM 5.4 mmol/L (3.5-5.1); SGOT 51 U/L (15-37); SGPT 44 U/L (30-65); SODIUM 137 mmol/L (136-145); TOTAL BILIRUBIN 0.4 mg/dL (0.2-1.0)
--- NOTE | 2021-04-26 05:02 | NUR ---
PT'S POTASSIUM IS 5.4 THIS MORNING. CONTACTED MUNICIPAL ENGINEER AND RECEIVED ORDERS.
[2021-04-26 07:44] VITALS: BP 120/88
--- NOTE | 2021-04-26 09:11 | NUR ---
Rec B12 supplementation d/t deficiency, trial appetite stimulant until POC determined r/t hospice.
[2021-04-26 09:27] LABS: T-SPOT.TB Negative
--- NOTE | 2021-04-26 10:48 | NUR ---
SW reviewed chart and spoke with nursing and attending physician. Pt remains in Enhanced Isolation due to COVID. Pt is afebrile and on room air. Pt is on Remdesivir. Pt is not eating. [facility] SW team is working on placement for pt. Pt is currently Medicaid pending. SW is available to assist as needed with discharge planning.
--- NOTE | 2021-04-26 14:14 | NUR ---
ASSUMED CARE AT SHIFT CHANGE. PT A/O X1, MUMBLES TO QUESTIONS, OCCASSIONALLY AUDIBLE RESPONSE. PT SLEEPING MOST OF THE DAY TODAY. WOULD NOT EAT BREAKFAST OR TAKE MEDS FOR THIS RN OR TECH. PT ALSO REFUSED LUNCH AFTER ONE BITE. SIG OTHER, LEIDY, UPDATED VIA PHONE TODAY. PT HAS NON-PRODUCTIVE COUGH. REMAINS ON RA WITH STABLE VS. GOOD URINE OUTPUT VIA BRAMBILA. FLUIDS RUNNING PER EMAR ORDER. WILL CONT TO MONITOR AND FOLLOW POC.
[2021-04-26 20:30] VITALS: BP 88/58
[2021-04-26 23:45] VITALS: BP 110/60
[2021-04-27 05:18] VITALS: BP 127/86
[2021-04-27 07:18] LABS: HEMATOCRIT 41.9 % (37.0-47.0); MCH 30.1 pg (26.0-34.0); MCHC 33.5 g/dL (28.0-37.0); MCV 89.7 fL (80.0-100.0); RBC 4.67 mil/uL (4.20-5.00); RDW 12.3 % (10.5-14.5); WBC 3.7 thou/uL (4.0-11.0)
[2021-04-27 07:26] LABS: CALCIUM 8.7 mg/dL (8.5-10.1); CREATININE 0.7 mg/dL (0.6-1.0); POTASSIUM 4.1 mmol/L (3.5-5.1)
--- NOTE | 2021-04-27 07:39 | NUR ---
PT MAKING POOR PROGRESS TOWARD GOALS. ON ROOM, LUNGS DIMINISHED THROUGHOUT. PT OPENS EYES TO NAME AND TOUCH. DID NOT STATE HER NAME AND TENDS TO RESIST AND STRIKE OUT WITH CARE BEING GIVEN. ONLY ABLE TO GET PT TO TAKE OLONZAPINE CRUSHED AND IN 90ML OF ORANGE JUICE.
[2021-04-27 08:40] VITALS: BP 84/45
[2021-04-27 09:46] VITALS: BP 97/51
--- NOTE | 2021-04-27 14:13 | NUR ---
SW reviewed chart and spoke with nursing and attending physician. Pt remains in Enhanced Isolation due to COVID. Pt is afebrile and on room air. No weekend discharge planned. Plan is for pt to discharge to [facility] unit when out of Enhanced Isolation. SW is following to assist as needed.
[2021-04-27 16:46] VITALS: BP 100/52
--- NOTE | 2021-04-27 16:59 | NUR ---
SELAM faxed referral to: [facility]ailash [facility]
--- NOTE | 2021-04-27 18:20 | NUR ---
ASSUMD PATIENT CARE AT 0700. ALERT VERY CONFUSED. RESTLESS ON BED. ASSISTED WITH MEALS. NOT TOWARDS POC GOALS.
[2021-04-27 20:19] VITALS: BP 99/83
[2021-04-28 04:51] VITALS: BP 110/73
[2021-04-28 07:16] VITALS: BP 118/67
[2021-04-28 15:45] VITALS: BP 119/73
--- NOTE | 2021-04-28 18:42 | NUR ---
ASSUMED PATIENT CARE AT 0700. ALERT, CONFUSED. PATIENT LIKE FINGER FOOD THAT ABLE TO FEED HER SELF. SLOWLY TOWARDS POC GOALS.
[2021-04-28 19:23] VITALS: BP 134/89
[2021-04-29 04:26] VITALS: BP 132/80
--- NOTE | 2021-04-29 07:48 | NUR ---
ABLE TO SNEAK MEDICATIONS IN WITH YOGURT OR PUDDING. SHE WILL SLAP AND HIT WHEN TRYING TO GIVEN LOVENOX. BED ALARM IS A MUST SHE WILL GET UP AND WALK AROUND ROOM WITH BRAMBILA IN TOW. REDRESSED IV SITE. ISOLATION PRECAUTIONS IN PLACE.
[2021-04-29 08:06] VITALS: BP 109/72
[2021-04-29 16:40] VITALS: BP 155/95
--- NOTE | 2021-04-29 17:59 | NUR ---
PATIENT ALERT. CONFUSED. ABLE TO FEED HER SELF. 70% EACH MEALS. PROGRESSING TOWARDS POC GOALS.
[2021-04-29 19:55] VITALS: BP 163/73
[2021-04-30 04:25] VITALS: BP 163/53
[2021-04-30 04:48] LABS: CALCIUM 8.8 mg/dL (8.5-10.1); CREATININE 0.7 mg/dL (0.6-1.0); POTASSIUM 3.6 mmol/L (3.5-5.1)
[2021-04-30 04:53] LABS: HEMATOCRIT 41.5 % (37.0-47.0); HEMOGLOBIN 13.8 gm/dL (12.0-15.0); MCHC 33.2 g/dL (28.0-37.0); MCV 90.3 fL (80.0-100.0); RBC 4.6 mil/uL (4.20-5.00); RDW 12.7 % (10.5-14.5); WBC 5.8 thou/uL (4.0-11.0)
--- NOTE | 2021-04-30 05:26 | NUR ---
ABLE TO GIVE MEDS CRUSHED AND IN ICE CREAM. WILL ASK DAY RN TO CHANGE ALL FOOD CHOICES TO FINGER FOODS PT REPORTEDLY THIS WAS MORE EFFECTIVE IN GAINING PTS COOPERATION WITH EATING. POORLY FOLLOWS DIRECTIONS AND FREQUENTLY RESISTS CARE. PT DOES BETTER WITH ONE PERSON PERFORMING ONE TASK AT A TIME AND WITH EMOTIONAL SUPPORT BEING VERBALIZED.
[2021-04-30 07:16] VITALS: BP 135/90
[2021-04-30] MEDS ORDERED: OLANZAPINE ODT5 MG PO (08:30)
--- NOTE | 2021-04-30 10:21 | NUR ---
PATIENT AWAKE AND ALERT THIS MORNING. PATIENT TOOK MEDICATIONS IN APPLESAUCE THIS MORNING WITH NO COMPLAINTS OR RESTISTANCE. REPORT GIVEN TO PSYCH AT 1025 WILL D/C IV AND BRAMBILA CATH PRIOR TO TRANSPORTATION TO OTHER UNIT. HAS BEEN NOTIFIED AND IS AT BEDSIDE AT THIS TIME.
--- NOTE | 2021-04-30 11:00 | NUR ---
DISCHARGE NOTE: SW reviewed chart and spoke with nursing and attending physiican. Enhanced Isolation precautions have been discontinued. Pt to discharge to [facility] unit today. [facility] SW to follow and assist as needed with discharge planning.
== END 2021-04-30 13:35 | DRG 177 ==
LOC: 3W 01:10
PROVIDERS: Hospitalist; Nurse Practitioner Family; Specialist; ADMIT Internal Medicine; ATTEND Internal Medicine
PROC: XW033E5 Introduction of Remdesivir Anti-infective into Peripheral Vein, Percutaneous Approach, New Technology Group 5 (ICD-10-PCS; principal; 2021-04-22)
DX: U07.1 COVID-19 (principal); G92.9 Unspecified toxic encephalopathy; E43 Unspecified severe protein-calorie malnutrition; J44.0 Chronic obstructive pulmonary disease with (acute) lower respiratory infection; F03.91 Unspecified dementia, unspecified severity, with behavioral disturbance; J45.909 Unspecified asthma, uncomplicated; F29 Unspecified psychosis not due to a substance or known physiological condition; I10 Essential (primary) hypertension; Z88.0 Allergy status to penicillin
CPT/HCPCS: 10879

== ENCOUNTER 2021-04-30 13:30 | Inpatient (IN) | payer OTHER ==
[~2021-04-30] VITALS: Ht 154.9 cm; Wt 38.7 kg
[~2021-04-30 13:30] MED LIST changes: +OLANZAPINE ODT5 MG PO
[2021-04-30 16:00] VITALS: BP 97/68
[2021-04-30 16:27] LABS: CHOLESTEROL 128 mg/dL (<200); HDL CHOLESTEROL 53 mg/dL (>40); LDL CHOLESTEROL 56 mg/dL (<100); TC:HDL 2.4 Ratio (Not establshd); TRIGLYCERIDE 99 mg/dL (<150); VLDL 20 mg/dL (<40)
--- NOTE | 2021-04-30 17:14 | NUR ---
PATIENT TRANSFERRED FROM [facility] BACK TO [facility], UPON ARRIVING ON UNIT PATIENT CALM COOPERATIVE. PATIENT ALERT ORIENTED TO SELF AND SITUATION PATIENT DENIES SI/HI/AH/VH AT PRESENT. PATIENTS ABDOMEN FLAT BOWEL SOUNDS PRESENT, PATIENTS LUNGS CLEAR. PATIENT HAS SEVERE MALNUTRITION AND HAS A NUTRITION CONSULT. PATIENT HAS HX OF COPD WAS A SMOKER 20 YEARS AGO, HTN, MAJOR NEUROCOGNITIVE DO, DEMENTIA WITH BEHAVIORS. I CALLED PATIENTS GAVE HIM THE SECURITY CODE; HE GAVE ME PERMISSION TO SIGN ADMIT PAPER. PATIENT IS CALM COOPERATIVE IS WALKING AROUND UNIT. PATIENT IS A FALL RISK HAS YELLOW SHIRT, SLIPPERS; WILL CONTINUE TO MONITOR PATIENT FOR SAFETY AND BEHAVIORS.
[2021-04-30 19:59] VITALS: BP 140/95
--- NOTE | 2021-05-01 01:10 | NUR ---
THADNET CARE WAS RESUMED AT 1900. SHE IS AWAKE AND PACING THE HALLWAY. SHE IS CONFUSED BUT DIRECTABLE. ALERT TO SELF. LUNGS ARE CLEAR BS ACTIVE X4 QUAD. SHE IS CONTINENT OF BOWEL AND BLADDER. SHE TOOK HER MEDS WHOLE AND DENIES PAINS/SI/AVH/HI. SHE IS SLEEPING ON THE RECLINER IN THE DININIG ROOM. YELLOW SOCKS AND TOP ON WITH ALARM ON THE CHAIR.[id number] CHECKS ARE ONGOING CONTINUE CARE.
[2021-05-01 02:06] LABS: GLYCOHEMOGLOBIN (HGB A1C) 5.3 % (4.8-5.6)
[2021-05-01 07:51] VITALS: BP 119/91
--- NOTE | 2021-05-01 09:07 | H ---
[facility] [place] [address] HISTORY AND PHYSICAL Name: CYNTHIA MORLEY Room #: 526B-B ADM IN M.R.#: [id number] Admission: 04/30/21 Attend Phys: Pranay Fregoso DO Discharge: Date of : 60 Report #: [id number] THIS REPORT FOR: cc: FAM - No family physician/PCP FAM - No family physician/PCP Pranay Fregoso DO ~ DATE OF SERVICE: 04/30/2021 INPATIENT PSYCHIATRIC EVALUATION ATTENDING PSYCHIATRIST: Pranay Fregoso DO INVESTMENT ADVISOR: Fernie Pryor MD REASON FOR ADMISSION: Dementia with behavioral disturbance, status post 10-day medical stay for acute COVID-19 infection in medical isolation unit. SOURCES OF INFORMATION: Interview with the patient, collateral from her significant other, Liam White, chart review. CHIEF COMPLAINT: Unspecified. HISTORY OF PRESENT ILLNESS: This is a 61-year-old female known to me for the last 2 weeks from original admission on the [facility] and then I saw her while she was on 3W, the patient had a rather isolated stay. The original admission back around 04/14/2021, she was a 61-year-old female cohabitating with a boyfriend referred from [facility]. She was brought by the [place] [employer]. She has had a progressive dementia for quite a number of years, at least 3 formally diagnosed. She had been combative with her boyfriend. While on the [facility], she had a fairly quiescent stay down on medical isolation unit [facility]. She has stopped eating and actually hospice measures were being considered. The quarantine and today she is looking perked up, walking around the unit drinking water. We are going to see if we can get her to take in any nourishment. I have had several meetings with Mr. White on the phone and in person since she was on West and he has an agreement with the placement. REVIEW OF SYSTEMS: Review of systems was not possible due to the degree of her dementia. MEDICAL HISTORY: Aside from the progressive dementia includes COPD, mixed hyperlipidemia, she has been seen by [facility] in the past. At one point, a spinal tap was considered, but the patient was not cooperative. She is uninsured. [address] [address] HISTORY AND PHYSICAL Name: PEYMANCYNTHIA VILLARREALNE Room #: 526B-B [facility] IN M.R.#: [id number] Admission: 04/30/21 Attend Phys: Pranay Fregoso, Discharge: Date of : 60 Report #: [id number] FAMILY HISTORY: Cholesterol on father's side. Grandmother had dementia. She has 3 siblings total, 2 sisters, one brother. Born and raised in [place], [place], raised, high school graduate, times twice. quit smoking 15-20 yearsago. Occasional THC use. LABORATORY DATA: Most recent laboratories. Lipids were within normal limits and A1c is pending. Hematology from 04/30/2021, white count 5.8, H and H 13.8 and 41.5, platelet count of 219. D-dimer 0.19 on 04/23/2021, fibrinogen 323. Electrolytes: Sodium 140, potassium 3.6, chloride 104, bicarbonate 25, anion gap 11, BUN 14, creatinine 0.7, estimated GFR 85. A1c 5.10, calcium 8.8. These are all from around the 04/26/2021 to the 04/30/2021. Calcium 8.8, phosphorus 4.0, magnesium 1.8, total bilirubin 0.4, direct less than 0.1, AST 51, ALT 44, alkaline phosphatase 49. Ammonia 23 on 04/22/2021. Lactate dehydrogenase 153 on 04/23/2021. CRP 2.9 on the 04/23/2021. Albumin 3.2 on admit. Thought there was a TSH, but I actually do not see one, not my do worth checking. B12 of 234 . Vitamin D low at 11.1, trace ketones. COVID-19 was right priot to medical isolation, negative prior obviously. PHYSICAL EXAMINATION: VITAL SIGNS: Today, temperature 36.4, pulse 69, respirations 16, BP 97/68, O2 sat 98%. MUSCULOSKELETAL: Thin, frail, ill-appearing, but walking independently. MENTAL STATUS EXAMINATION: Well-developed, ill-appearing, very frail, thin female. Attention and concentration are quite limited. Speech soft, normal rate. Thought process: Linear, very limited. Thought content, kind of "where am I" kind of statements, confused. Denied SI, denied HI, denied auditory or visual type hallucinations. Denied hopelessness, helplessness. Insight, judgment impaired. Fund of knowledge well below average. FORMULATION: A 61-year-old female readmitted to the [facility] due to continuing issues with placing her and I am providing her with a walker. DIAGNOSES: Major Neurocognitive Disorder, likely early Alzheimer's disease, but other etiologies are possible with behavioral disturbance, improved. Medical comorbidities are as follows, psychosis, hypertension, chronic obstructive pulmonary disease. PLAN: Admitted to [facility] Unit given poor intake, may later consider reintroduction od antipsychotic medication but it is a quite a very fine line between helping [facility] [address] [place] [address] HISTORY AND PHYSICAL Name: CYNTHIA MORLEY Room #: 526B-B ADM IN .R.#: [id number] Admission: 04/30/21 Attend Phys: Pranay Fregoso DO Discharge: Date of : 60 Report #: [id number] her and excessively sedating her, so she is not thriving at present. Time spent on this case about 45 minutes. STRENGTHS: She has a supportive significant other. WEAKNESS: Uninsured. Medicaid pending placement. ESTIMATED LENGTH OF STAY: 10-14 days. <ELECTRONICALLY SIGNED> By: Pranay Fregoso DO 05/01/21 0907 [id number] [id number] Pranay Fregoso DO /nt
[2021-05-01 10:38] VITALS: BP 119/91
--- NOTE | 2021-05-01 13:11 | NUR ---
Shelly was alert and oriented to self only this shift. She appeared restless but pleasant and cooperative. She was in a amandeep-chair in the dayroom for morning medications and was noted eating breakfast. Pt is able to feed herself but requires assistance at times. Pt is able to ambulate and qulifies as a low fall risk but due to pt being unsteady, staff has been with pt when ambulating and toileting. PT saw pt and stated that pt is not a good candidate as she is unable to follow instructions and is easily distracted. Pt was medication compliant, taking pills whole without difficulty. She appeared bright and talkative, but unable to hold a logical conversation as her thought process is disorganized. She did not voice any physical complaints, and appeared comfortable throughout the shift. No SI/HI bx noted. Will continue to monitor.
[2021-05-01 19:55] VITALS: BP 139/101
[2021-05-01 20:13] VITALS: BP 139/101
--- NOTE | 2021-05-02 04:10 | NUR ---
Assumed care on 05/01/21 @ 1900, seated in a amandeep chair and up with assistance for safety, HRRR, Lungs CTA with diminished bilat, ABD Normoactive x 4Q. Patient is unsure of when her last BM was. q12 minute rounding for comfort and safety.
[2021-05-02 09:56] VITALS: BP 119/81
--- NOTE | 2021-05-02 11:59 | NUR ---
PATIENT HAS BEEN UP, AND OUT ON THE UNIT, SITTING IN GERICHAIR. PATIENT IS ALERT, ANDORIENTED X 1-2, SHE IS FORGETFUL, AND CONFUSED AT TIMES. JANICE (LEIDY ) CALLED FOR UPDATE, UPDATE PROVIDED BY THIS RN. PATIENT REQUIRES ASSIST OF STAFF TO COMPLETE ADL, INCLUDING FEEDING. MORNING MEDICATION GIVEN CRUSHED IN APPLE SOURCE, WELL TOLERATED. PATIENT RAMBLES, RESPONDS TO INTERNAL STIMULI, TALKS TO SELF, AND UNSEEN OTHERS. PATIENT DENIES SUICIDAL IDEATION, SHE IS NOT ABLE TO APPROPRIATELY RESPOND TO FURTHER ASSESSMENT QUESTIONS DUE TO COGNITIVE IMPAIRMENT. NO AGITATION OR IRRITABLE BEHAVIOR NOTED AT THIS TIME. AFFECT IS FLAT/BLUNTED, MOOD IS EUTHYMIC. PATIENT TOILETED BY STAFF NEEDED. NO SIGN OF ACUTE DISTRESS NOTED, WILL CONTINUE TO REDIRECT, AND MONITOR FOR SAFETY.
--- NOTE | 2021-05-02 16:59 | NUR ---
SELAM sent referrals to the following [facility]- declined no beds [facility]
[2021-05-02 19:37] VITALS: BP 111/83
[2021-05-02 19:45] VITALS: BP 111/83
--- NOTE | 2021-05-02 23:00 | NUR ---
PATIENT CARE WAS RESUMED AT 1900. SHE IS AWAKE SITTING IN THE DININIG AREA ON THE TABLE. SHE IS VERBAL BUT UNABLE TO ENGAGE IN CONVERSATIONS, CONFUSED, SHE AMBULATES AND CONTININT OF BOWEL AND BLADDER. LUNGS ARE CLEAR BS ACTIVE X4 QUAD. SHE TOOK HER MEDS WHOLE DENIES PAINS/SI/AVH/HI. YELLOW TOP AND SOCKS ARE ON. BED IS LOW, LOCKED AND ALARMED. Q12 MINUTES CHECKS ARE ACTIVE. SHE IS A MAX ASSIT WITH CARE.
[2021-05-03 09:12] VITALS: BP 132/96
[2021-05-03 11:55] VITALS: BP 132/96
--- NOTE | 2021-05-03 13:27 | NUR ---
RESUMMED CARE; PATIENT LOCATED IN THE DINNING SENIOR ALONG SIDED PEERS; A&O*1- WITH INTERMITTENT DISORIENTAION*4; PATIENT IS A FEEDER WITH MEALS DUE TO THE HIGH CONFUSIONS-PT. IS UNABLE TO REMEMBER HOW TO PROPERLY FEED SELF AT TIME; PATIENT IS REDIRCTABLE BUT IS HAVING TO HAVE CONTINOUS REDIRECTING; PATIENT PRESENT FRAIL; BEHAVIOR PRESENT [id number]; YES/NO QUESITIONS BEST WITH THIS PATIENT; VSS ON ROOMAIR; NO S/O ACUTE DISTRESS PRESENTED; BUSINESS ANALYST CONSULTANT WAS NOT ABLE TO FIND WHEN THE PATIENTS LAST BOWEL MOVEMENT WAS AND IN REPORT RN WAS UNSURE WHEN BUSINESS ANALYST CONSULTANT ASKED; PATIENTS ABDOMEN IS [id number]*4; WILL CONTINUE TO MONITIOR; MEAL/MED COMPLIANT WITH ASSISTANCE; FALL PRECAUTIONS IN PLACE; WILL CONTINUE TO MONITIOR PER [facility] PROTOCOL;
[2021-05-03 19:47] VITALS: BP 150/81
[2021-05-03 19:55] VITALS: BP 150/81
--- NOTE | 2021-05-03 23:48 | NUR ---
FANTA CAPELLAN WAS RESUNED AT 1900. SHE WAS IN THE DINING ARE SITTING ON THE RECLINER. SHE IS CONTINENT OF BOWEL AND BLADDER. YELLOW TOP AND SOCKS ARE ON. SHE DENIES PAINS/SI/AVH/HI. CONFUSED BUT ABLE TO COMMUNICATE SOME NEEDS. SHE IS MAX ASSIT WITH CARE.Q 12MINUTES CHECK IS ACTIVE
[2021-05-04 10:01] VITALS: BP 119/68
--- NOTE | 2021-05-04 12:24 | NUR ---
SELAM recieved a call from Mukul, Admissions at the [facility]. Mukul requested PASSAR code and COVID vaccination status. SELAM was able to provide the requested information. Mukul stated they are able to accept the Pt today. Discharge was scheduled for 05/04/2021 @ 1500. Pt will be transported by [facility]. SELAM was able to speak with the Pt's DPOA, Liam Leal, concerning the matter. Liam was in agreement to the placement and expressed his gratitude.
[2021-05-04] MEDS ORDERED: REMERON 30 MG T30 M1 PO (14:12)
[2021-05-04] MEDS ORDERED: LISINOPRIL20 MG PO (14:12)
[2021-05-04] MEDS ORDERED: VITAMIN D3125 MC1 PO (14:13)
--- NOTE | 2021-05-04 15:44 | NUR ---
Shelly was discharged from [facility] at 1522. Liam Leal was called and reviewed pt's discharge summary, all questions answered and he voice appreciation for the update. Report given to Maeve at [facility], all questions answered and encouraged to call with any further questions. Shelly was medication and meal compliant, without difficulty. She was changed into a pair of clothing but pt did not have any items documented on pt's inventory list and pt did not have any belongings in any of the pt lockers. Pt stable and talkative upon discharge.
--- NOTE | 2021-05-05 22:00 | D ---
[facility] [place] [address] DISCHARGE SUMMARY Name: CYNTHIA MORLEY Room #: 527B-B [facility] [place] M.R.#: [id number] Admission: 04/30/21 Attend Phys: Pranay Fregoso DO Discharge: 05/04/21 Date of : 60 Report #: [id number] THIS REPORT FOR: cc: MELECIO - [facility] family physician/PCP FAM - No family physician/PCP Pranay Fregoso DO ~ DATE OF SERVICE: 05/04/2021 INPATIENT PSYCHIATRIC DISCHARGE SUMMARY ATTENDING PSYCHIATRIST: Pranay Fregoso DO [facility] ARTIST: Pranay Scherer MD DISCHARGE DIAGNOSES: Major neurocognitive disorder, unspecified degree with behavioral disturbance, improved. Medical comorbidities include severe protein calorie malnutrition, hypertension, COVID-19 infection, status post quarantine. Of note, the patient had gone medical from original geriatric psychiatry admission. The patient is discharging to [facility] for long-term care. Psychiatric and medical care per receiving facility. DIET: Regular, with Ensure Enlive twice per day. ACTIVITY LEVEL: As tolerated. She does ambulate and does use a rolling walker when she ambulates. She is a no code. LABORATORY DATA: On readmission, white count 5.8, H and H 13.8 and 41.5, platelet count 219, A1c slightly low at 1.3. Other recent labs, sodium 140, potassium 3.6, chloride 104, bicarbonate 25, anion gap 11, BUN 14, creatinine 0.7, estimated GFR 85. A1c 5.3, calcium 8.8, triglycerides 99, cholesterol 128, LDL 56. Urinalysis: Trace ketones. Serology: Obviously, she was COVID-19 PCR positive. DISCHARGE MEDICATIONS: As follows. Lisinopril 20 mg oral daily for hypertension; mirtazapine 15 mg oral at bedtime for sleep, appetite, and depression; cholecalciferol 5000 international units oral daily for supplementation. REASON FOR READMISSION: Back on 04/30, 61-year-old female undergoing medical 10 days prior after testing positive for acute COVID-19. She was originally admitted due to agitation and significant other's inability to care for her. HOSPITAL COURSE: Readmitted to Geriatric Psychiatry. The patient had poor intake on , but things were back on track [facility] as I examined in retrospect. She averaged around 50% of meals since the 04/30, which was much [facility] [address] [place] [address] DISCHARGE SUMMARY Name: CYNTHIA MORLEY Room #: 527B-B [facility] IN ..#: [id number] Admission: 04/30/21 Attend Phys: Pranay Fregoso, Discharge: 05/04/21 Date of : 60 Report #: [id number] better from days prior, where she was averaging 25% or less. We spoke with her DPOA, significant other, Mr. White. He understands she has very advanced dementia with poor prognosis. He was very glad with the placement. PHYSICAL EXAMINATION: VITAL SIGNS: Temperature 35.8, pulse 52, respirations 18, BP 119/60, O2 sat 93%. MUSCULOSKELETAL: Gait not tested. Unkempt appearance. seated in chair in hospital gown. MENTAL STATUS EXAMINATION: Well-developed, ill, frail, malnourished-appearing female. Attention limited. Concentration impaired. Speech soft, normal rate. Thought process: Linear and goal directed. Thought content: Poverty of thought. In general, looks very pleasant. Memory known to be impaired. Insight is impaired and judgment is impaired. Fund of knowledge well below average. PROGNOSIS: For this patient is guarded to poor. <ELECTRONICALLY SIGNED> By: Pranay Fregoso DO 05/05/212199 1522 34 Pranay Fregoso DO /nt
== END 2021-05-04 15:22 | DRG 56 ==
LOC: SBH 13:30
PROVIDERS: ADMIT Psychiatry & Neurology Psychiatry; ATTEND Psychiatry & Neurology Psychiatry
DX: G30.9 Alzheimer's disease, unspecified (principal); E43 Unspecified severe protein-calorie malnutrition; U07.1 COVID-19; J44.0 Chronic obstructive pulmonary disease with (acute) lower respiratory infection; F01.51 Vascular dementia, unspecified severity, with behavioral disturbance; Z68.1 Body mass index [BMI] 19.9 or less, adult; F02.81 Dementia in other diseases classified elsewhere, unspecified severity, with behavioral disturbance; I10 Essential (primary) hypertension; Z88.0 Allergy status to penicillin; Z20.822 Contact with and (suspected) exposure to COVID-19
CPT/HCPCS: 10880